=== PATIENT | female | born 1990 | race Caucasian/White ===

== ENCOUNTER 2025-03-01 14:32 | Outpatient (CLI) | payer OTHER, SELFPAY | END 2025-03-01 14:33 | disposition home or self-care (01) | PROVIDERS: Visit Provider Registered Nurse | DX: Z34.83 Encounter for supervision of other normal pregnancy, third trimester (principal) | CPT/HCPCS: 80306; 87086 ==

== ENCOUNTER 2025-03-05 14:29 | Outpatient (CLI) | payer OTHER, SELFPAY ==
--- NOTE | 2025-03-05 14:45 | CRLHL7_ITS ---
For Patients: As a result of the Century Cures Act, medical imaging exams and procedure reports are released immediately into your electronic medical record. You may view this report before your referring provider. If you have questions, please contact your health care provider. OB ULTRASOUND ANATOMY SURVEY SARAH by US: 04/10/2025. GA: 34 w, 6 d. INDICATION: Supervision of normal . TECHNIQUE: Real time cooper scale imaging of the fetus was performed. position: Vertex. Cervix: Not visualized. Placenta/cord: Posterior. Umbilical Cord: 3-vessel cord. Placenta insertion: Central. Amniotic Fluid: 5.3cm SDP (greater than/equal to: 2- less than 8 cm). SURVEY: Observed Structures. Calvarium/Spine: Cerebellum: See comments. Cisterna Magna: See comments. Nuchal Fold: See comments. Lateral Ventricle: See comments. CSP: Yes. Midline Falx: Yes. Choroid Plexus: See comments. Spine: Yes. Abdomen: Stomach: Yes. Abd Cord Insertion: Yes. Urinary Bladder: Yes. Kidneys: Yes. Diaphragm: Yes. Face: Nose/lips: Yes. Orbital view: See comments. Profile: Yes. Limbs: Upper Extremities: Yes. Lower Extremities: Yes. Hands: Yes. Feet: Yes. Vascular: 4-Chamber Heart: Yes. LVOT: Yes. RVOT: Yes. 3VV: Yes. 3VTV: Yes. BPD: 8.6 cm. 34 w, 4 d, 45 percent. HC: 31.6 cm. 35 w, 3 d, 30 percent. AC: 30.4 cm. 34 w, 2 d, 41 percent. FL: 7.1 cm. 36 w, 0 d, 80 percent. FL/AC ratio: 23.34 percent. HC/AC ratio: 1.04. heart rate: 137 bpm. age by this US: 35 w, 1 d. SARAH by this US: 04/08/2025. EFW: 2577 g. Weight: 5 lbs, 11 oz. Percentile by SARAH: 52 percent. COMMENTS: Limited exam due to age. IMPRESSION: 1. Sonographic gestational age 35 weeks 1 day and sonographic due date 04/08/2025. Good correlation with dates. 2. Estimated weight 52nd percentile. Abdominal circumference 41st percentile. Adalid Rothman M.D. Diagnostic Radiologist [email or web address] SP/Dictated by: Adalid Rothman MD @ 03/05/2025 3:56:00 PM (Electronically Signed)
== END 2025-03-05 14:30 | disposition home or self-care (01) ==
LOC: US 14:29
PROVIDERS: Visit Provider Registered Nurse
DX: Z34.93 Encounter for supervision of normal pregnancy, unspecified, third trimester (principal); Z3A.34 34 weeks gestation of pregnancy
CPT/HCPCS: 76805

== ENCOUNTER 2025-03-05 16:08 | Outpatient (CLI) | payer OTHER, SELFPAY | END 2025-03-05 16:09 | disposition home or self-care (01) | LOC: NFLDREF 16:09 | PROVIDERS: Visit Provider Advanced Practice Midwife | DX: Z34.83 Encounter for supervision of other normal pregnancy, third trimester (principal); Z67.11 Type A blood, Rh negative | CPT/HCPCS: 86592; 86703; 86704; 86706; 86762; 86787; 86803; 86850; 86900; 86901; 87340; J2791 ==

== ENCOUNTER 2025-03-11 10:55 | Outpatient (CLI) | payer MEDICAID, SELFPAY ==
--- NOTE | 2025-03-11 11:15 | CRLHL7_ITS ---
For Patients: As a result of the Century Cures Act, medical imaging exams and procedure reports are released immediately into your electronic medical record. You may view this report before your referring provider. If you have questions, please contact your health care provider. SARAH by US: 04/10/2025. GA: 35w, 5d. Single. TECHNIQUE: Transabdominal and transvaginal imaging was performed for optimal imaging. INDICATION: Supervision of with insufficient care. Follow-up missed anatomy, cervix. CERVIX: Visualized. Measurement: 3.4. POSITIONING: Vertex. AMNIOTIC FLUID: 7.1 cm SDP. PLACENTA: PLACENTA POSITION: Posterior. DOPPLER: heart rate: 138 bpm. IMPRESSION: 1. Transabdominal and transvaginal imaging was performed. The cervix is closed on transvaginal imaging and measures 3.4 cm. 2. Left lateral ventricle measures 8.3 mm. 3. Bilateral choroid plexus cysts measuring 8 x 5 x 5 mm on the right and 5 x 3 x 5 mm on the left. 4. Normal amniotic fluid with single deepest pocket 7.1 cm. Adalid Rothman M.D. Diagnostic Radiologist [email or web address] CANDELARIA/sheila / bM/Dictated by: Adalid Rothman MD @ 03/11/2025 2:52:00 PM (Electronically Signed)
== END 2025-03-11 10:56 | disposition home or self-care (01) ==
LOC: US 10:55
PROVIDERS: Visit Provider Advanced Practice Midwife
DX: O09.293 Supervision of pregnancy with other poor reproductive or obstetric history, third trimester (principal); O09.33 Supervision of pregnancy with insufficient antenatal care, third trimester; Z3A.35 35 weeks gestation of pregnancy
CPT/HCPCS: 76816; 76817

== ENCOUNTER 2025-03-11 12:45 | Outpatient (CLI) | payer OTHER, SELFPAY | END 2025-03-11 12:46 | disposition home or self-care (01) | LOC: NFLDREF 03-12 23:32 | PROVIDERS: Visit Provider Obstetrics & Gynecology | DX: O23.593 Infection of other part of genital tract in pregnancy, third trimester (principal); N89.8 Other specified noninflammatory disorders of vagina; Z3A.35 35 weeks gestation of pregnancy | CPT/HCPCS: 87081; 87653 ==

== ENCOUNTER 2025-03-22 09:56 | Outpatient (RCR) | payer MEDICAID, SELFPAY ==
[2025-03-22 10:05] VITALS: BP 119/79; PULSE 91; RESP 20; TEMP 35.9; O2SAT 99
[2025-03-22] MEDS: ferumoxytoL 1,020 MG in 0.9 % SODIUM CHLORIDE 250 ml 250 ML 568 MG IVPB (10:54)
[2025-03-22 12:19] VITALS: BP 114/61; PULSE 90
--- NOTE | 2025-03-22 15:06 | ONC.NURNOTE ---
Pt tolerated iron infusion overall well. Paused infusion ~ 15 min in d/t achey IV arm. Waited 10 min, restarted at slightly slower rate with NS primary line infusing at Y site and wrapped arm in warm blanket. Pt denied discomfort; tolerated rest of dose well.
== END 2025-09-18 23:59 | disposition home or self-care (01) ==
LOC: CCIC 09:56
PROVIDERS: Visit Provider Clinical Nurse Specialist
DX: O99.013 Anemia complicating pregnancy, third trimester (principal); D50.9 Iron deficiency anemia, unspecified
CPT/HCPCS: 96365; J7050; Q0138

== ENCOUNTER 2025-04-10 15:19 | Outpatient (CLI) | payer MEDICAID, SELFPAY | END 2025-04-10 15:20 | disposition home or self-care (01) | LOC: NFLDREF 04-16 07:16 | PROVIDERS: Visit Provider Obstetrics & Gynecology | DX: N39.0 Urinary tract infection, site not specified (principal); B95.61 Methicillin susceptible Staphylococcus aureus infection as the cause of diseases classified elsewhere | CPT/HCPCS: 87086; 87186 ==

== ENCOUNTER 2025-04-15 20:27 | Outpatient (CLI) | payer BC, SELFPAY ==
[2025-04-15 20:38] VITALS: BP 116/76; PULSE 65; PULSE 73; O2SAT 99
--- NOTE | 2025-04-15 22:30 | PC.OBNST ---
NST Note NST Note Start: 04/15/25 19:36 Freq: ONCE Status: Discharge Protocol: Document 04/15/25 22:25 [facility] (Rec: 04/15/25 22:29 [facility] [id number]) NST Note 5 Para (# of births) 4 EDC 04/10/25 Gestational Age In 40 Weeks & 5 Days Weeks & Days Patient Presented Contractions/cramping with Complaint(s) of Reactive Yes Appropriate for Yes Gestational Age RN Rylan RN Date 04/15/25 Reactive Yes Appropriate for Yes Gestational Age RN Ivis RN Date 04/15/25 OB NST charge Yes Complete NST Note Yes via Write Note The provider's electronic signature indicates the NST is reactive/appropriate for gestational age. *Note to provider: If an addendum is required, open the patient's chart and click on the note under the Nurse/Allied Health tab.
== END 2025-04-15 22:27 | disposition home or self-care (01) ==
LOC: OB OUT 20:27 → OB 20:27
PROVIDERS: Visit Provider Obstetrics & Gynecology
DX: O47.1 False labor at or after 37 completed weeks of gestation (principal); Z3A.40 40 weeks gestation of pregnancy
CPT/HCPCS: 59025; G0463

== ENCOUNTER 2025-04-17 14:50 | Outpatient (CLI) | payer BC, SELFPAY ==
--- NOTE | 2025-04-17 15:15 | CRLHL7_ITS ---
For Patients: As a result of the Century Cures Act, medical imaging exams and procedure reports are released immediately into your electronic medical record. You may view this report before your referring provider. If you have questions, please contact your health care provider. INDICATION: Post dates, nonreactive nonstress test. TECHNIQUE: Ultrasound OB pelvis transabdominal. Real-time cooper-scale imaging of the fetus was performed with color Doppler and spectral Doppler analysis of the umbilical artery without stress testing. COMPARISON: 03/11/2025 FINDINGS: Sonographic imaging demonstrates a single living intrauterine gestation. Fetus demonstrates a regular cardiac rate of 165 beats per minute. Fetus has a cephalic orientation. The placenta lies posterior. Amniotic fluid volume appears normal with a MVP of 7.2 cm. breathing movements, motion, and tone were all observed. IMPRESSION: Single viable intrauterine with a biophysical profile 06/21. Dictated by Marcus Barragan MD @ 04/17/2025 4:03:14 PM (Electronically Signed)
== END 2025-04-17 14:51 | disposition home or self-care (01) ==
PROVIDERS: Visit Provider Obstetrics & Gynecology
DX: O48.0 Post-term pregnancy (principal); Z3A.41 41 weeks gestation of pregnancy
CPT/HCPCS: 76819; 87081; 87653

== ENCOUNTER 2025-04-18 04:10 | Inpatient (IN) | payer BC, SELFPAY ==
[2025-04-18] VITALS (56 sets, daily range): BP systolic 66–122; BP diastolic 43–83; PULSE 61–148; RESP 14–20; TEMP 36.4–36.9; O2SAT 82–100; BMI 29.1
--- NOTE | 2025-04-18 04:27 | P.LDBA_ITS ---
Subjective History of Present Illness Time Seen by Provider: 04:30 Date Seen: 04/18/25 Narrative: Patient is being admitted to Labor and Delivery for spontaneous onset of labor as a trial labor after . She is a 34 year old at 41w1d gestation. Her full history and physical was dictated by Dr. Guerin on 03/21/25. Please see this for details. Barb notes question of ROM at about 0130, with onset of regular/painful contractions shortly thereafter. She is s/p membrane sweep in the clinic today. Endorses small volume bloody show at home, no hussein vaginal bleeding. Endorses active movement. She denies any abdominal pain between contractions. is significantly complicated by history of delivery, this is in the context of a placenta previa and was complicated by hemorrhage of nearly 3 L requiring transfusion of 2 units of packed red blood cells. That baby was macrosomic, at 9 lb 10 oz at 36w3d GA. Patient conceived at approximately 6 months after her last delivery (C/S), where Dr. Segura consider ed her cycle length, SARAH via LMP of 04/15/25 and anticipated date of conception of 07/24/24 - which would be just over our criteria for candidacy to TOLAC. Patient has been extensively counseled about increased risk of uterine rupture in the setting of close interval . She affirms a strong desire to proceed with TOLAC, where written consent was obtained on 04/12/25. She is s/p lab draw (histo ry of anemia, s/p IV iron infusions) with a T/S, has IV in place. She desires expectant management of labor, noted to be /-1 by RN on admission. After discussion, she does consent to active management of the third stage with pitocin to reduce risk of PPH. She would be agreeable to blood transfusion if required. We discussed recommendation for continuous monitoring, where I would have a low threshold to intervene in the setting of concerning FHR changes as this, pain, nausea/vomiting, vaginal bleeding. She expressed understanding and is agreeable to the above plan. Specific Issues/Plans G 5 P 2510 Fiance: Temo H&P by CGM on 03/21/25 #Limited obstetric care due to moving and being busy with custody rodriguez with previous partner (Has only had 2 prior office visits. Late labs and US.) Urine tox completed at transfer of care visit: negative FAS at 34.6 weeks. Unable to see multiple brain structures and orbitals. Placenta location not identified. Called to recommended repeat w/TV US but unable to leave a message. Portal message sent and sent to triage for f/u. Repeat ultrasound: Posterior placenta. #History of delivery due to placenta previa with 4th baby. * Desires VTOLAC * Last menstrual period began 07/09/2024. She was menstruating at 28-29 day i ntervals prior to conception. She had an early ultrasound for viability on 10/01/2024 which demonstrated a viable intrauterine measuring 12 weeks 5 days, and an ultrasound SARAH 04/10/2025. This was in agreement with last menstrual period dating with EDC 04/15/2025. The patient tells me that she knows that she did not conceive until at least July 24 or , because she and her partner had not had sex until that date. Based on her cycle length, EDC of 04/15/2025, and conception date of 07/24/2024, she would have conceived six months and almost one week after her delivery. Thus, she is a candidate for TOLAC at this institution. * Third trimester ultrasound: 03/05/2025 EFW 52%, AC 41%. * Consent: Signed # Bilateral Choroid plexus cysts on f/u US Declined NIPT and level II US # Failed 1hr GTT. Waiting to hear from pt about 3hr GTT vs continuous glucose monitoring options. Declined any additional glucose testing # Anemia 9.2 at 34.6wks. Recommended PO iron. Iron infusion therapy ordered-scheduled to start 03/22/25 # Advanced maternal age Did not complete genetic testing Did not take low-dose aspirin Did not complete official 20 week ultrasound. States that she had an unofficial 4D ultrasound around 20 weeks. Order placed for FAS #Rh negative Rhogam given 03/05/2025 #Hemorrhage with delivery for placenta previa. Received 2 units packed red blood cells. #Short interval between pregnancies. Last delivery was January 16, 2024. #Anxiety. Well managed with vitamins. Took prescription medication in the past, but did not like how she felt. #History of abnormal Pap smear. ASCUS, positive HPV on July 2023. Colposcopy was recommended, but patient declined because she was . Will be due for Pap and/or colposcopy # history of Macrosomia. Fourth baby 9 lb 10 oz at 36 weeks 6 days. Growth ultrasound 03/05/2025: EFW 52% #Needle phobia Her EDC of 04/10/2025 is based on ultrasound performed at 12 weeks 5 days January 2025: Hemoglobin 9.9, negative urine tox July 2023: Varicella 1.4/positive Ultrasound 10/01/2024: Intrauterine with crown-rump like measurements giving EDC of 04/10/2025 Ob check on 01/22/2025 indicated that she refused all labs and recommended testing. Pap smear July 2023: ASCUS, positive HPV, negative for 16, 18, 45 Imaging: Vaccinations: COVID: Declined Flu: Declined Tdap: Declined RSV: N/A GBS negative 32 week mental health: PHQ - 4 WILLIE - 6 Last pap: July 2023: ASCUS, positive HPV. Negative 16, 18, 45. Patient declined colp. OB - Problem Based A/P Additional Plan (1) Choroid plexus cyst: Status: Acute (2) Iron deficiency: Status: Acute (3) GTT (glucose tolerance test) abnormal: Status: Acute (4) History of macrosomia in in prior , currently : Status: Acute (5) Anxiety: Status: Acute (6) Short interval between pregnancies affecting in third trimester, antepartum: Status: Acute (7) History of delivery: Status: Acute (8) Limited care: Status: Acute (9) Rh negative status during : Status: Acute (10) Advanced maternal age (AMA) in : Status: Acute Plan Barb is a 34yo admitted at 41w1d GA as a TOLAC for spontaneous onset of labor. is complicated by prior C/S (previa, macrosomic , complicated by PPH of nearly 3L), close interval where she conceived just over 6 months after her last delivery a , limited care, anxiety, iron deficiency anemia, abnormal glucose tolerance test where she declined subsequent testing, AMA, Rh negative. Her full history and physical was dictated by Dr. Guerin on 03/21/25. Please see this for details. Patient noted onset of regular/painful contractions about 0330 after an episode of questionable rupture membranes. On arrival, she was 8/90/-1. Initially requested expectant management, later requested amniotomy due to significant pain and desire from medicated labor. Amniotomy was performed with meconium- stained fluid. - Admit to Labor and delivery for spontaneous onset of labor as a trial of labor after - Pediatrics was attached requested to attend delivery. - OR team notified to present for TOLAC. Patient affirmed her strong desire to proceed with trial of labor after , we again reviewed the risks/benefits and particularly her increased risk of uterine rupture given close interval . - GBS negative at 36 weeks, however this had . She has a repeat GBS pending. Patient has no risk factors for GBS disease (prolonged rupture, geo bridget affected by GBS disease), thus we will withhold treatment as she is low risk and term. - Blood type A negative, cord blood at time of delivery. - Active type and screen on file, hemoglobin pending. OB Exam Physical Exam Vital signs: Pulse BP Pulse Ox 74 117/59 L 99 04/18/25 04:22 04/18/25 04:22 04/18/25 04:20 Narrative: General: Alert and oriented, in distress secondary to contractions. Breathing and resting between. Psych: Appropriate mood and affect Abdomen: Gravid. Contractions palpate firm, resting Tone was soft. FHR: Category 2 on admission though overall reassuring. Baseline of 150 beats per minute, moderate variability, 10x10 accelerations present, intermittent early and variable decelerations with rapid return to baseline. [place]: Romina q2-5 minutes Patient noted urge to push around 0500. Cervical exam performed, with BBOW palpated. Patient provided consent for AROM, performed with return of meconium stained fluid.
[2025-04-18 04:49] LABS: Basophils Percent Auto 0.2 % (0.0-3.0); Eosinophils Percent Auto 0.2 % (0.0-7.0); Hematocrit 34.6 % (33.0-51.0); Hemoglobin* 10.9 gm/dL (12.0-16.0); Immature Granulocytes Pct Auto 0.7 %; Lymphocytes Percent Auto 15.4 % (20-44); Mean Corpuscular HGB Conc 32 gm/dL (32-36); Mean Corpuscular Hemoglobin 28 pg (26-34); Mean Corpuscular Volume 89 fL (80-100); Monocytes Percent Auto 6.8 % (0.0-11.0); Neutrophils Percent Auto 76.7 % (42.0-72.0); Platelet Count* 226 K/uL (140-440); RDW Coefficient of Variation % 24.8 % (11.5-15.5); Red Blood Count 3.88 m/uL (4.00-5.20); White Blood Count* 12.58 K/uL (4.50-11.00)
[2025-04-18 04:51] LABS: Slide Review Reflex No
[2025-04-18] MEDS: OXYTOCIN 30 unit/500 ML in NS 30 UNIT/500 ML BAG 300 UNIT IVPB (05:34)
[2025-04-18] MEDS: fentaNYL 100 MCG/2 ML inj IVP (05:54)
[2025-04-18] MEDS: LACTATED RINGERS 1000 ML 1,000 ML 1100 ML IV (05:55)
[2025-04-18] MEDS: LIDOCAINE 1 % PF 30 ML INJECTION (05:59)
[2025-04-18] MEDS: lidocaine HCL 2 % JELLY (TOP) STERILE 6 ML TOPICAL (06:04)
--- NOTE | 2025-04-18 06:35 | W.PM.VAGDEL1 ---
Procedure Procedure Done: Global Procedure Details: Normal spontaneous vaginal delivery Manual removal of the placenta Second degree perineal laceration repair Events: Previous , Labor Augmentation, AMA and Other (Late term gestation, close interval , TOLAC, history of macrosomia, abnormal 1 hour glucola and declined subsequent testing) Delivery augmentation: rupture of membranes Delivery monitor: none Route of delivery: Laceration description: Perineal - 2nd Degree Delivery repair: Vicryl Estimated blood loss (mL): 1,953 Anesthesia type: Local Disposition: floor Complications: hemorrhage Retained placenta Narrative: Barb is a 34yo admitted at 41w1d GA as a TOLAC for spontaneous onset of labor. is complicated by prior C/S (previa, macrosomic , complicated by PPH of nearly 3L), close interval where she conceived just over 6 months after her last delivery a , limited care, anxiety, iron deficiency anemia, abnormal glucose tolerance test where she declined subsequent testing, AMA, Rh negative. heart tones on admission were category 2. Her labor was augmented with amniotomy and natural methods and nitrous were utilized for pain management. Status of bag of [place]: AROM with return of meconium-stained fluid. heart tones during active labor were category 2 for variable decelerations, rapid return to normal baseline with moderate variability. She was complete at 0514 and started pushing at 0515. She made excellent descent throughout the second stage of labor, and had a normal spontaneous vaginal delivery in hand and knees position at 0532. heart tones during second stage of labor were category 2 for recurrent variable decelerations, with rapid return to normal baseline. Baby delivered OA, restituted GIORGIO and the anterior and posterior shoulders delivered without difficulty. Nuchal cord: present, tight where this was reduced at perineum. The cord was clamped and cut after delayed cord clamping. Active management of the third stage occurred with IV pitocin and gentle cord traction. Moderate bleeding was noted to occur immediately following delivery secondary to second-degree laceration and mild atony. Pitocin was ongoing, where traction was placed on the umbilical cord, gentle fundal massage and maternal expulsive efforts ensued. Placenta failed to deliver despite these efforts for 20 minutes, where QBL was noted to be 1500cc. IV fentanyl was requested and administered, 100mcg. Vaginal exam confirmed a majority of the placenta could be palpated in the vagina, where this was grasped and plane between placenta and uterus was gently teased apart. Patient noted severe pain requested exam stop. She then requested to push instead, where a majority of her placental ultimately did deliver but was noted to be not intact. The maternal cotyledons were intact, but the peripheral members were disrupted around a majority of the placenta. These could be seen trailing at the vaginal introitus, gently teased out with ring forceps. Placenta was inspected and noted to be disrupted but seemingly complete. Excellent uterine tone was noted. Cord gases sent: no Cord blood sent for ABO: yes details: - Liveborn male fetus at 0532 - weight [id number] - APGARs were 8 and 9 at 1 and 5 minutes respectively Perineum and vagina were inspected, and the following lacerations were noted: second degree laceration. Repair was completed in the usual fashion with 3-0 vicryl with topical then local lidocaine for analgesia. Excellent hemostasis was noted. Total QBL was 1953cc. Plan stat hemoglobin and coags. Given no ongoing bleeding, no immediate plan for transfusion was indicated however we did call to begin cross match process. Plan close interval follow up of bleeding. The following counts were correct: sponges, needles, instruments. Mother and in stable condition following the . Care was turned over to Dr. Tita Michele as of 614. Infant Gender: Male presentation: vertex Placental Delivery Description: Manual Removal Cord Description: 3 Vessels and Nuchal Cord
[2025-04-18 06:54] LABS: Basophils Percent Auto 0.2 % (0.0-3.0); Hematocrit 24.6 % (33.0-51.0); Hemoglobin* 7.6 gm/dL (12.0-16.0); Immature Granulocytes Pct Auto 0.7 %; Lymphocytes Percent Auto 6.9 % (20-44); Mean Corpuscular HGB Conc 31 gm/dL (32-36); Mean Corpuscular Hemoglobin 28 pg (26-34); Mean Corpuscular Volume 91 fL (80-100); Monocytes Percent Auto 4.1 % (0.0-11.0); Neutrophils Percent Auto 88.1 % (42.0-72.0); Platelet Count* 181 K/uL (140-440); RDW Coefficient of Variation % 24.7 % (11.5-15.5); White Blood Count* 11.57 K/uL (4.50-11.00)
[2025-04-18 06:55] LABS: Slide Review Reflex No
[2025-04-18 07:09] LABS: INR 1.03 (0.91-1.10); Prothrombin Time 14.3 Seconds
[2025-04-18 07:10] LABS: Partial Thromboplastin Time* 25 Seconds (23-33)
[2025-04-18 07:11] LABS: Fibrinogen* 363 mg/dL (200-450)
[2025-04-18] MEDS: LACTATED RINGERS 1000 ML 1,000 ML IV (07:22)
[2025-04-18] MEDS: IBUPROFEN 600 MG TABLET PO ×3 (10:39→22:32)
[2025-04-18] MEDS: DOCUSATE SODIUM 100 MG CAPSULE PO (10:40)
[2025-04-18] MEDS: 0.9 % SODIUM CHLORIDE 500 ML 250 ML IV (11:13)
[2025-04-18 12:32] LABS: Basophils Percent Auto 0.1 % (0.0-3.0); Hematocrit 27.3 % (33.0-51.0); Hemoglobin* 8.9 gm/dL (12.0-16.0); Immature Granulocytes Pct Auto 0.5 %; Lymphocytes Percent Auto 10.1 % (20-44); Mean Corpuscular HGB Conc 33 gm/dL (32-36); Mean Corpuscular Hemoglobin 29 pg (26-34); Mean Corpuscular Volume 88 fL (80-100); Neutrophils Percent Auto 84.3 % (42.0-72.0); Platelet Count* 172 K/uL (140-440); RDW Coefficient of Variation % 21.7 % (11.5-15.5); White Blood Count* 13.68 K/uL (4.50-11.00)
[2025-04-18 12:33] LABS: Slide Review Reflex No
[2025-04-19] VITALS (8 sets, daily range): BP systolic 94–111; BP diastolic 59–69; PULSE 57–84; RESP 16–18; TEMP 36.5–36.8; O2SAT 94–98
[2025-04-19] MEDS: IBUPROFEN 600 MG TABLET PO ×2 (04:29→10:32)
[2025-04-19 06:49] LABS: Hemoglobin* 7.3 gm/dL (12.0-16.0)
--- NOTE | 2025-04-19 07:47 | PM.OBPNVD1 ---
OB - PN:Subj Subjective Date Seen: 04/19/25 Narrative: Barb is a 34 year old who was admitted for spontaneous labor for TOLAC and proceeded to have a vaginal with a 2nd degree laceration that was repaired. It was complicated by a hemorrhage. She received 2 units of blood yesterday. She is receiving more today. Lab coags were normal. The patient feels well.?The pain is well controlled with current medications.? She has no new complaints.?Hgb is 7.3 this morning, but she is asymptomatic and feels well. Urinary output is adequate and she is voiding without difficulty.? Has a good appetite, is tolerating a general diet, is passing flatus, and has not had a bowel movement.? Has scant amount of rubra lochia.? She is ambulating well. She is and reports it is going well.? OB - PN: Obj Exam Physical Exam: Vital signs: Temp Pulse Resp BP Pulse Ox O2 Del Method 97.7 F 71 16 94/59 L 98 Room Air 04/19/25 04:25 04/19/25 04:25 04/19/25 04:25 04/19/25 04:25 04/19/25 04:25 04/19/25 04:25 Narrative: GENERAL APPEARANCE:? normal affect, alert, no distress MOOD:? appropriate CHEST:? clear to auscultation HEART:? regular rate and rhythm ABDOMEN:? soft, non-tender the uterine fundus 3 fingerbreadths below Umbilicus, Midline and is appropriate for the stage of recovery. PERINEUM:? deferred since Dr Bajwa entered room to round. EXTREMITIES:? normal and minimal edema OB - PN: Obj Data Labs Labs: Laboratory Results - last 24 hr 04/18/25 04/18/25 04/19/25 04:29 12:25 06:08 WBC 13.68 H RBC 3.10 L Hgb 8.9 L 7.3 L* Hct 27.3 L MCV 88 MCH 29 MCHC 33 RDW Coeff of [place] 21.7 H Plt Count 172 Neut % (Auto) 84.3 H Lymph % (Auto) 10.1 L [place] % (Auto) 5.0 Eos % (Auto) 0.0 Baso % (Auto) 0.1 Neut # (Auto) 11.50 H Lymph # (Auto) 1.40 [place] # (Auto) 0.70 Eos # (Auto) 0.00 Baso # (Auto) 0.00 Abs Immat Gran (auto) 0.10 Imm/Tot Granulo (auto) 0.5 Blood Type A Negative Antibody Screen POSITIVE Antibody Identification Anti-D Crossmatch (AHG) See Detail OB - PN: A/P Delivery Assessment and Plan (1) Iron deficiency: Status: Acute (2) Anxiety: Status: Acute (3) History of delivery: Status: Acute (4) Limited care: Status: Acute (5) hemorrhage: Status: Acute (6) care and examination of lactating mother: Status: Acute (7) , delivered: Status: Acute Plan Comments: PP day #1 care as indicated Blood products currently being administered May see as desired Anticipate discharge possibly tomorrow with improving labs and maintained stability.
[2025-04-19] MEDS: DOCUSATE SODIUM 100 MG CAPSULE PO ×2 (10:27)
[2025-04-19] MEDS: FERROUS SULFATE 325 MG TABLET PO (10:28)
[2025-04-19 11:10] LABS: Hemoglobin* 8.8 gm/dL (12.0-16.0)
[2025-04-19 13:45] LABS: Rapid Plasma Reagin (RPR) Non Reactive (Non Reactive)
--- NOTE | 2025-04-19 15:38 | P.DS_ITS ---
DS: Providers Provider Date Seen: 04/19/25 Date of admission: 04/18/25 04:10 Primary care physician: Not a Local Provider Admitting Clinician: Mirlande Mccallum MD Attending Physician on discharge: Michell VILLANUEVA Date of Discharge: 04/19/25 DS: Diagnosis Discharge Diagnosis (1) care and examination of lactating mother: Status: Acute (2) , delivered: Status: Acute (3) Iron deficiency: Status: Acute (4) hemorrhage: Status: Acute (5) History of delivery: Status: Acute (6) Limited care: Status: Acute Exam Narrative: Exam Narrative: Per exam this morning and perineal check later: GENERAL APPEARANCE:? normal affect, alert, no distress MOOD:? appropriate CHEST:? clear to auscultation HEART:? regular rate and rhythm ABDOMEN:? soft, non-tender the uterine fundus 3 fingerbreadths below Umbilicus, Midline and is appropriate for the stage of recovery. PERINEUM:? Laceration well approximated, with minimal edema and no erythema. EXTREMITIES:? normal and minimal edema Const: Vital Signs, click to edit/add: Vital Signs - 24 hr 04/18/25 20:23 04/19/25 04:25 04/19/25 07:59 Temperature 98.1 F 97.7 F 97.9 F Pulse Rate 83 Pulse Rate [Pulse Oximeter] 76 71 Respiratory Rate 16 16 18 Blood Pressure 97/59 L Blood Pressure [Le ft Arm] 122/83 94/59 L Pulse Oximetry 96 98 94 Oxygen Delivery Me thod Room Air Room Air Room Air 04/19/25 08:29 04/19/25 08:30 04/19/25 08:59 Temperature 98.0 F 98.0 F 98.1 F Pulse Rate 66 57 L Pulse Rate [Pulse Oximeter] 66 Respiratory Rate 18 18 18 Blood Pressure 99/62 105/69 Blood Pressure [Le ft Arm] 99/62 Pulse Oximetry 97 97 96 Oxygen Delivery Me thod Room Air Room Air Room Air 04/19/25 09:29 04/19/25 10:01 04/19/25 10:31 Temperature 98.0 F 98.2 F 98.0 F Pulse Rate 68 76 84 Pulse Rate [Pulse Oximeter] Respiratory Rate 18 18 18 Blood Pressure 102/63 111/67 101/66 Blood Pressure [Le ft Arm] Pulse Oximetry 96 97 96 Oxygen Delivery Me thod Room Air Room Air Room Air OB - DS: Summary Hospital Course Hospital Course: Barb is a 34 year old who was admitted for spontaneous labor for TOLAC and proceeded to have a vaginal with a 2nd degree laceration that was repaired. It was complicated by a hemorrhage. She received 2 units of blood yesterday. She has received 2 more doses today. 1.5 hours after infusion, the hgb was up to 8.8. Lab coags were normal. The patient feels well.?The pain is well controlled with current medications.? She has no new complaints.?Urinary output is adequate and she is voiding without difficulty.? Has a good appetite, is tolerating a general diet, is passing flatus, and has not had a bowel movement.? Has scant amount of rubra lochia.? She is ambulating well. She is and reports it is going well.?She strongly desires to go home. Dr Tamayo has approved the request. She has had some low BPs, but has not had any tachycardia. Baby blood type is negative. No Rhogam is needed. ?? Problems:Hemorrhage, Transfused 4 units. ?? plan:? Discharge home with baby.? Follow up in 2 weeks and 6 weeks.? , may see if needed? Hgb 8.8. Iron supplement ordered orally every other day. she states she has plenty at home already and will take those. ? Peripartum Data Infant delivery method: Vaginal Laceration description: Perineal - 2nd Degree Episiotomy description: None complications: other (Hemorrhage) [place] Infant Gender: Male Discharge Plan: Home Status at Discharge Functional status at discharge: independent ambulation Overall status at discharge: patient is progressing back to baseline Time Spent with Patient Time attestation: Total time spent providing and/or coordinating discharge services: Time spent: Less than 30 minutes Discharge Plan Discharge Disposition: Home, Self-Care Date of Admission: 04/18/25 04:10 Attending Provider on Discharge: Roxi Busch Primary Care Provider: Provider,Not a Local Condition: Stable Anticipated Discharge Date/Time: 04/19/25 15:47 Discharge Medications: Continued DHA 200 mg capsule 200 mg PO QDAY Discontinued famotidine [Pepcid AC] 10 mg tablet 10 mg PO QDAY cephalexin 500 mg capsule 500 mg PO QID Discharge Orders: Discharge Order (Routine); Ordered 04/19/25 Ordered By: Roxi Busch Patient Education: OB Over the Counter Medication Information, OB Vaginal/Breast Feeding Additional Instructions: Discharge instructions were reviewed with the patient including signs and symptoms of infection and home going medications Nothing vaginally for 6 weeks: no tampons or intercourse Do not drive while taking narcotic pain medication(s) Off Work or School for 6 weeks Symptoms to report to doctor: * Bleeding that saturates more than one pad per hour * Passing clots larger than the size of a golf ball * Pain not relieved by prescribed medication * Fever above 100.4 degrees Fahrenheit * A foul vaginal odor * Difficulty in emotions, mood, and functions * Thoughts of hurting yourself and/or * Painful, reddened area in your breast * Any drainage, redness, or tenderness in your IV/epidural site * Severe headache that doesn't improve after taking medications * Changes in vision, including temporary loss of vision, blurred vision, and/or light sensitivity * Upper abdominal pain (usually under ribs on the right side) * Decrease in urination or painful, frequent urinating * Chest pain * Shortness of breath * Tenderness or pain with redness and/swelling in the calf(s) of your leg 2-week visit: discuss feeding concerns, review control options and screen for anxiety/depression. 6-week visit for an annual exam. consultation services are available to all mothers and babies for the first year after delivery.? To make an appointment, please call [phone]. Advised to take iron supplement every other day. Activity Level: Activity as Tolerated and No strenuous activity Discharge Diet: Regular Follow Up Appointments: Provider,Not a Local [Primary Care Provider, Family Practice] Forms: [employer] [facility] Info Instructions
== END 2025-04-19 15:15 | disposition home or self-care (01) | DRG 541 ==
LOC: OB OUT 04:17 → OB 04:17
PROVIDERS: Midwife; Obstetrics & Gynecology; Admitting Provider Obstetrics & Gynecology; Visit Provider Obstetrics & Gynecology
DX: O48.0 Post-term pregnancy (principal); O34.211 Maternal care for low transverse scar from previous cesarean delivery; O70.1 Second degree perineal laceration during delivery; O72.1 Other immediate postpartum hemorrhage; O72.0 Third-stage hemorrhage; O99.02 Anemia complicating childbirth; O99.03 Anemia complicating the puerperium; D62 Acute posthemorrhagic anemia; D50.9 Iron deficiency anemia, unspecified; O99.344 Other mental disorders complicating childbirth; F41.9 Anxiety disorder, unspecified; F40.231 Fear of injections and transfusions; O26.893 Other specified pregnancy related conditions, third trimester; Z67.11 Type A blood, Rh negative; O99.814 Abnormal glucose complicating childbirth; Z3A.41 41 weeks gestation of pregnancy; Z37.0 Single live birth
CPT/HCPCS: 36415; 36430; 85018; 85025; 85384; 85610; 85730; 86592; 86850; 86870; 86880; 86900; 86901; 86922; A9270; J2003; J3010; J7030; J7120; P9016